=== PATIENT | male | born 1995 | race Caucasian/White ===

== ENCOUNTER 2017-07-26 08:07 | Emergency (ER) | payer OTHER ==
[~2017-07-26] VITALS: Ht 170.2 cm; Wt 60.0 kg
[~2017-07-26 08:07] MED LIST: HYDR-3419 PO
[2017-07-26 08:18] VITALS: TEMP 36.8; Ht 170.2 cm; Wt 60.0 kg
--- NOTE | 2017-07-26 08:51 | EMERGENCY ROOM VISIT NOTE ---
History First contact with patient: 08:17 Chief Complaint: ABDOMINAL PAIN Stated Complaint: STOMACH PAIN,BLURRIED VISION Nursing Triage Summary: pt ambulatory to room a11b. pt reports this am he went to work and started to have generalized abd pain. pt reports he left work and while driving he became dizzy "and i couldn't see." pt reports lasted several minutes. pt reports at this time he feels "fine." History of Present Illness The patient is a 22 year old male who presents to the Emergency Room with his family with complaints of generalized abdominal pain that developed at work this morning. The patient reports that he decided to drive home, and then started to develop dizziness, sweatiness and blurred vision. The patient denies passing out. Although the patient reports visual complications, he was able to use his phone to call his mother. His mother was concerned, and called 911. When EMS arrived, the patient refused transport as his symptoms had completely resolved. The patient was brought here for further evaluation. The patient currently denies any discomfort. The patient reports a history of frequent similar cramping abdominal pain. His pain lasted this morning approximate 45 minutes. The mother reports a strong family history of Crohn's disease, IBS and diverticular disease. The patient has not seen his family doctor in several years. During these episodes this morning, he denied any headache, chest pain, palpitations, nausea or vomiting. He denies any recent illnesses. As indicated above, the patient currently denies any symptoms. Review of Systems 10 system review was performed and was negative except for pertinent positives and negatives as indicated in history of present illness Past Medical/Surgical History Medical Problems: (1) No significant past medical history Surgical Problems: (1) No history of previous surgery Family History FH: Crohn's disease FH: cancer FH: diabetes mellitus FH: irritable bowel syndrome FH: lung disease Social History Smoking Status: Never Smoker Alcohol Use: none Drug Use: none Marital Status: single Housing Status: lives with family Occupation Status: employed Current/Historical Medications No Active Prescriptions or Reported Meds Physical Exam Vital Signs Date Time Temp Pulse Resp B/P (MAP) Pulse Ox O2 Delivery O2 Flow Rate FiO2 07/26/17 08:18 36.8 61 18 118/78 100 Room Air Physical Exam CONSTITUTIONAL: Healthy and well nourished. Alert and oriented X 3 with positive affect. GCS 15. Patient does not appear in any acute distress. HEENT: Normocephalic, atraumatic. Pupils equal, round and reactive. Ears and nares are clear. No scleral icterus or conjunctival injection. OROPHARYNX: Mucous membranes are dry. NECK: Full active range of motion without discomfort. No JVD or carotid bruits. RESPIRATORY: Clear to auscultation bilaterally with no wheezing, crackles, rhonchi or stridor. CARDIOVASCULAR: Regular rate and rhythm with no murmurs, rubs or gallops. GASTROINTESTINAL: Bowel sounds present in all quadrants. Abdomen is soft and nontender to palpation. No hepatosplenomegaly. MUSCULOSKELETAL: Full range of motion of all joints without discomfort. INTEGUMENTARY: No rash or other significant dermatologic conditions noted. NEUROLOGIC: Cranial nerves II-XII grossly intact. No focal neurologic deficits noted. No ataxia with ambulation. Medical Decision & Procedures ED Course Patient history and physical exam were performed. Nurse's notes were reviewed. Vital signs were reviewed and were normal. The patient currently is asymptomatic, and is refusing further workup. Family is present as well. I did discuss several different possibilities of his symptoms. The patient denies history of constipation. The patient's abdominal pain was rather brief, which would suggest a colicky type of pain. The patient has had emergent abdominal pain now for several years, suggesting a chronic issue. The mother reports that the patient's sister has a history of gluten intolerance. Regarding the visual disturbance and diaphoresis, I suspect the patient had a vasovagal episode. The patient denies losing consciousness. Through shared medical decision making, I explained that I could perform workup, including ECG , lab work and head CT. The patient again reported that he currently does not have any symptoms, and does not feel that he needs any workup at this time. Family members were in agreement. I did encourage the patient to call his family doctor for close management. The patient was instructed to return to the emergency department over the weekend for any recurring symptoms. The patient and family were happy with plan of care. Medical Decision See previous section Medication Reconcilliation Current Medication List: was personally reviewed by me Blood Pressure Screening Patient's blood pressure: Normal blood pressure Impression Primary Impression: Abdominal pain Additional Impression: Visual disturbance Departure Information Dispostion Home / Self-Care Prescriptions No Active Prescriptions or Reported Meds Forms HOME CARE DOCUMENTATION FORM, IMPORTANT VISIT INFORMATION Patient Instructions My [facility] Additional Instructions Suggest follow-up with your family doctor early next week for further reevaluation. Return to the emergency department for any recurrent symptoms. Problem Qualifiers Primary Impression: Abdominal pain Abdominal location: generalized Qualified Codes: R10.84 - Generalized abdominal pain
[2017-07-26 08:55] VITALS: BP 128/72; PULSE 68; O2SAT 100
== END 2017-07-26 08:58 | disposition home or self-care (01) ==
LOC: C.EDB 08:07 → C.EDA 08:58
DX: R10.84 Generalized abdominal pain (principal); R42 Dizziness and giddiness; R61 Generalized hyperhidrosis; H53.8 Other visual disturbances; Z83.79 Family history of other diseases of the digestive system